=== PATIENT | female | born 1945 | race African-American/Black ===

== ENCOUNTER 2019-09-26 19:44 | Emergency (ER) | payer OTHER ==
[~2019-09-26] VITALS: Ht 167.6 cm; Wt 70.8 kg
[2019-09-26 20:27] LABS: ABSOLUTE NEUTROPHILS 3.1 thou/uL (1.4-8.2); BASOPHILS 0.3 % (0.0-2.0); EOSINOPHILS 1.8 % (0.0-3.0); HEMATOCRIT 40.3 % (37.0-47.0); HEMOGLOBIN 13.6 gm/dL (12.0-15.0); LYMPHOCYTES 40.4 % (24.0-44.0); MCH 29.5 pg (26.0-34.0); MCHC 33.6 g/dL (28.0-37.0); MCV 87.8 fL (80.0-100.0); MONOCYTES 8.8 % (1.0-8.0); PLATELET COUNT 164 thou/uL (150-400); POLYS 48.7 % (36.0-66.0); RDW 13.6 % (10.5-14.5); WBC 6.3 thou/uL (4.0-11.0)
[2019-09-26 20:43] LABS: ANION GAP 8 mmol/L (7-16); BUN 20 mg/dL (7-18); CALCIUM 9.3 mg/dL (8.5-10.1); CHLORIDE 101 mmol/L (98-107); CO2 25 mmol/L (21-32); GLUCOSE 154 mg/dL (74-106); LARGE PLATELETS FEW; PLATELET ESTIMATE NORMAL; SODIUM 134 mmol/L (136-145)
[2019-09-26 20:49] LABS: ALBUMIN 3.8 g/dL (3.4-5.0); SGOT 27 U/L (15-37); SGPT 42 U/L (30-65); TOTAL BILIRUBIN 0.4 mg/dL (0.2-1.0); TOTAL PROTEIN 8.6 g/dL (6.4-8.2); TROPONIN-I <0.06 ng/mL (<0.06)
[2019-09-26 21:27] VITALS: BP 128/70
--- NOTE | 2019-09-28 08:52 | EKG ---
[facility] [place] [address] ELECTROCARDIOGRAM REPORT Name: WILFRIDO JACKSON Room #: DEP [facility]#: [id number] Admission: 09/26/19 Attend Phys: Discharge: 09/26/19 Date of : 47 Report #: [id number] THIS REPORT FOR: cc: Anthony Caraballo MD,Anthony Reyes,Velasquez Waller MD [facility] ~ THIS REPORT FOR: //name// [facility] ED Test Date: 2019-09-26 Test Time: 19:50:59 Pat Name: WILFRIDO JACKSON Department: Room: Gender: F Sample Color Maker: [facility] : 1945 Requested By: Roman Camarena Order Number: [id number] MD: Velasquez Reyes Measurements Intervals [place]ora Rate: 97 P: 74 TN: 174 QRS: -32 QRSD: 76 T: 75 QT: 341 QTc: 433 Interpretive Statements Sinus rhythm Inferior infarct, old Baseline wander in lead(s) I,II,aVR,aVL,aVF,V3 No previous ECG available for comparison Electronically Signed On 09-28-2019 8:50:32 CDT by Velasquez Reyes [email or web address] <ELECTRONICALLY SIGNED> By: Velasquez Reyes MD, [facility] 09/28/19 0850 1950 1950 Velasquez Reyes MD, [facility] /EPI
== END 2019-09-26 21:37 | disposition home or self-care (01) ==
LOC: ER 19:44
PROVIDERS: Emergency Medicine
DX: R07.89 Other chest pain (principal); E11.9 Type 2 diabetes mellitus without complications; E03.9 Hypothyroidism, unspecified; M32.9 Systemic lupus erythematosus, unspecified; Z90.89 Acquired absence of other organs